=== PATIENT | female | born 2005 | race Caucasian/White ===

== ENCOUNTER 2024-08-24 21:31 | Emergency (ER) | payer OTHER, SELFPAY ==
[2024-08-24 21:31] VITALS: BP 117/87; PULSE 90; RESP 16; TEMP 36.8; O2SAT 99; BMI 24.8
--- NOTE | 2024-08-24 22:47 | EX.ED.DYSGE1 ---
HPI History of Present Illness Chief Complaint: Ear Problem Informant: patient Narrative Narrative: Right ear pain for the past 3 weeks. No hearing loss. Saw [facility] today placed on ofloxacin drops for otitis externa. History of similar in her left ear never in the right ear. Today pain causing nausea. Using Tylenol and Motrin. Currently no nausea. No allergies. Prior similar symptoms: Yes PFSH PFSH Medical History no medical history Home Medications ?Medication ?Instructions ?Recorded ?Last Taken ?Type ciprofloxacin 0.3 %-dexamethasone 4 drp RIGHT EAR Q12H 7 days #7.5 mL 08/24/24 Unknown Rx 0.1 % ear drops,suspension ondansetron 4 mg disintegrating 4 mg PO Q8H PRN PRN Nausea #10 tabs 08/24/24 Unknown Rx tablet Allergy/AdvReac Type Severity Reaction Status Date / Time No Known Allergies Allergy Verified 08/24/24 21:33 Social History Smoking Status: Never smoker ROS ROS ED Constitutional Constitutional ED: Denies chills, fever(s) or sweats ENT ENT ED: Reports ear pain; Denies sore throat Cardiovascular Cardiovascular: Denies chest pain, leg edema, palpitations or racing heartbeat Respiratory/Chest Respiratory/Chest: Denies cough, dyspnea or dyspnea on exertion Gastrointestinal Gastrointestinal: Denies abdominal pain, diarrhea, nausea or vomiting Genitourinary Genitourinary ED: Denies dysuria, hematuria or urinary frequency Musculoskeletal Musculoskeletal: Denies back pain, extremity pain or neck pain Integumentary Denies rash or wounds Neurologic Neurologic: Denies headache(s), paresthesias or weakness EXAM Physical Exam Const Vital Signs: 08/24/24 21:31 08/24/24 22:59 Temperature 98.2 F 98.2 F Temperature Source Oral Pulse Rate 90 85 Respiratory Rate 16 18 Blood Pressure 117/87 H 116/70 Blood Pressure Mean 97 85 Pulse Ox 99 99 Oxygen Delivery Method Room Air Positive well nourished and well developed General Appearance ED: well developed and NAD HEENT Reports TM's clear and moist mucous membranes HEENT Narrative: Left ear: Normal canal no swelling. Right ear: Tragal tenderness, there is swelling to canal however was patent. TM visualized and intact. normocephalic and atraumatic Tympanic Membrane ED: Yes TM's clear Eyes General Eye ED: Yes normal appearance of both eyes Neck full ROM Chest Wall Chest: Negative for tenderness Resp normal respiratory effort and normal air movement Effort and Inspection: symmetric chest movement; Negative for respiratory distress Cardio regular rate, regular rhythm and no murmurs Peripheral Pulses: pulses 2+ throughout GI normal to inspection, nondistended, normoactive bowel sounds and non-tender Palpation: Negative for guarding or rebound tenderness present Extremity normal to inspection General Extremety ED: Negative for edema or tenderness General Extremity: Negative for edema Neuro oriented x3 and no sensory deficits noted Sensorium / Orientation: awake and alert Skin no rashes or lesions noted and no wounds MDM MDM MDM Narrative Medical decision making narrative: Interventions / MDM: Differential diagnosis: Right otitis externa, right otalgia Diagnosis considered but do not suspect: N/A My EKG interpretation: N/A Imaging independently reviewed and interpreted by myself: N/A External documents reviewed: N/A Test considered but not ordered:N/A ED course: Vital stable exam consistent with otitis externa. There is swelling canal is not fully closed therefore no wick is necessary. With swelling I will switch her over to Ciprodex. Written prescription for Zofran as needed she will continue Miguel Motrin. ENT follow-up given. All questions were answered. Re-evaluation: stable Disposition discussed with patient/family/significant other: Patient Case discussed with consulting clinician: N/A This note was generated with [employer] dictation software. It may contain incorrect words, spelling, and punctuation that were not noted in checking the note before signing. Discharge Plan Triage Chief Complaint: Ear Problem ED Provider: Tino Kaufman Dx/Rx/DC Orders Clinical Impression: Otitis externa of right ear, Otalgia Instructions: ED External Ear Infection (Adult) Prescriptions: New ciprofloxacin-dexamethasone 0.3-0.1 % drops,suspension 4 drp RIGHT EAR Q12H 7 Days Qty: 7.5 0RF ondansetron 4 mg tablet,disintegrating 4 mg PO Q8H PRN PRN (Reason: Nausea) Qty: 10 0RF Primary Care Provider: Audi Baker,Out of Referrals: Myron Willson MD [Med Staff - Courtesy Staff] - 1-2 Weeks [facility] Doctor,Out of [Primary Care Provider] - Activity Restrictions/Additional Instructions: Switch over to the new antibiotic drops. Make sure to place a cottonball after you placed the drops. Continue Tylenol and Motrin. You Zofran as needed. May follow-up with ENT. Print Language: Macedonian Disposition Disposition: Home, Self Care Discharge Date/Time: 08/24/24 22:59
[2024-08-24 22:59] VITALS: BP 116/70; PULSE 85; RESP 18; TEMP 36.8; O2SAT 99
== END 2024-08-24 22:59 | disposition home or self-care (01) ==
LOC: ED 22:52
PROVIDERS: Emergency Provider Emergency Medicine; Visit Provider Emergency Medicine
DX: H60.91 Unspecified otitis externa, right ear (principal); H92.09 Otalgia, unspecified ear
CPT/HCPCS: 99282